=== PATIENT | male | born 1995 | race Two or more races ===

== ENCOUNTER 2016-07-17 10:19 | Emergency (ER) | payer OTHER ==
[~2016-07-17] VITALS: Ht 165.1 cm; Wt 72.0 kg
[2016-07-17 10:43] VITALS: Ht 165.1 cm; Wt 72.0 kg
[2016-07-17] MEDS ORDERED: ONDANSETRON (ODT) 4 MG TAB ODT STA (12:15)
--- NOTE | 2016-07-17 12:28 | ERD ---
ER Documentation Chief Complaint Date/Time DATE: 07/17/16 TIME: 12:27 Chief Complaint ABSCESS ON LT BUTTOCK HPI Otherwise healthy 21-year-old male presents the emergency department complaining of pain and mild swelling near his buttock region 3 days. Patient states he is currently experiencing a 10 out of 10 sharp pain localized to the affected region. He states the pain is worse when walking or sitting. He notes associated fever and chills last night for which she treated with Motrin. Patient states that Motrin helped his symptoms slightly. Patient denies any drainage from the area. Patient denies any history of diabetes or other medical conditions. ROS All systems reviewed and are negative except as per history of present illness. Medications Home Meds Active Scripts Naproxen* (Naprosyn*) 500 Mg Tablet, 500 MG PO BID for 7 Days, TAB Prov:ANDREA MAS PA-C 07/17/16 Hydrocodone/Acetaminophen (Arabi 5-325 Tablet) 1 Each Tablet, 1 TAB PO Q6H Y for PAIN, #7 TAB Prov:ANDREA MAS PA-C 07/17/16 Trimethoprim-Sulfamethoxazole* (Bactrim*) 400-80 Mg Tab, 1 TAB PO BID, #20 TAB Prov:ANDREA MAS PA-C 07/17/16 Cephalexin* (Keflex*) 500 Mg Capsule, 500 MG PO TID for 7 Days, CAP Prov:ANDREA MAS PA-C 07/17/16 Discontinued Scripts Sulfamethoxazole/Trimethoprim* (Bactrim Ds* Tablet) 1 Each Tablet, 1 TAB PO BID , #14 TAB Prov:ANDREA MAS PA-C 07/17/16 Allergies Allergies: Coded Allergies: No Known Allergy (Unverified , 07/17/16) PMhx/Soc History of Surgery: No Anesthesia Reaction: No Hx Neurological Disorder: No Hx Respiratory Disorders: No Hx Cardiac Disorders: No Hx Psychiatric Problems: No Hx Miscellaneous Medical Probl: No Hx Alcohol Use: No Hx Substance Use: No Hx Tobacco Use: No Physical Exam Vitals Vital Signs Date Time Temp Pulse Resp B/P Pulse Ox O2 Delivery O2 Flow Rate FiO2 07/17/16 10:43 98.4 88 16 121/80 99 Physical Exam Const: Well-developed, well-nourished, in mild distress Head: Atraumatic Eyes: Normal Conjunctiva ENT: Normal External Ears, Nose and Mouth. Neck: Full range of motion..~ No meningismus. Resp: Clear to auscultation bilaterally Cardio: Regular rate and rhythm, no murmurs Abd: Soft, non tender, non distended. Normal bowel sounds Skin: 1.5 cm area of induration and erythema localized to the proximal left gluteal fold with visible purulent fluid deep to the skin. No evidence of drainage or bleeding. Tender to palpation. No petechiae or rashes Back: No midline or flank tenderness Ext: No cyanosis, or edema Neur: Awake and alert Psych: Normal Mood and Affect Results 24 hrs Current Medications Medications (Trade) Dose Ordered Sig/Ann Route PRN Reason Start Time Stop Time Status Last Admin Dose Admin Lidocaine (Xylocaine 1% (Mdv) 20 ml) 20 ml ONCE ONCE SC 07/17/16 12:30 07/17/16 12:31 DC Acetaminophen/ Hydrocodone Bitart (Arabi (5/325)) 1 tab ONCE ONCE PO 07/17/16 12:30 07/17/16 12:31 DC Ondansetron HCl (Zofran Odt) 4 mg ONCE STAT ODT 07/17/16 12:15 07/17/16 12:17 DC Procedures/MDM Abscess Incision and Drainage with irrigation by me: Location: Proximal left gluteal fold Anesthesia: Local 1% Lidocaine Technique: Irrigated. Disrupted loculations w/ instrumentation Packing: None Complications: Neurovascularly intact post procedure 48 hour wound check. Scar minimization instructions given. Patient's skin symptoms have stabilized while they have been evaluated in the department and are appropriate for outpatient care and work up. Exam and w/u not consistent w/ sepsis, deep space infection, or foreign body. Patient to begin antibiotic therapy and continue Motrin for pain control. Based on patient's history of present illness and physical examination the decision was made to discharge. The patient was re-evaluated after ED treatment and stabilizing measures, and symptoms have improved. There is no evidence of life threatening injuries or illnesses at this time. On re-examination, patient resting in no distress, stable vital signs, reports feeling better and safe for discharge with outpatient follow up with PMD in 1-2 days. Patient given return precautions. Departure Diagnosis: Primary Impression: Abscess Additional Impressions: Pilonidal abscess Encounter for incision and drainage procedure ANDREA MAS PA-C Jul 17, 2016 12:28
[2016-07-17] MEDS ORDERED: LIDOCAINE 1% (MDV) 20 ML INJ SC ONE (12:30)
[2016-07-17] MEDS ORDERED: HYDROCODONE/APAP (5/325) TAB PO ONE (12:30)
[2016-07-17] MEDS ORDERED: CEPH-443 PO (12:59)
[2016-07-17] MEDS ORDERED: SULF1TAB31 PO (12:59)
[2016-07-17] MEDS ORDERED: BACTRIM PO (13:01)
[2016-07-17] MEDS ORDERED: HYDR-906 PO (13:02)
[2016-07-17] MEDS ORDERED: NAPR-260 PO (13:02)
== END 2016-07-17 13:47 | disposition home or self-care (01) ==
LOC: FTE 10:19
DX: L05.01 Pilonidal cyst with abscess (principal)
CPT/HCPCS: 10080; Z7502; Z7610